=== PATIENT | male | born 1970 | race Caucasian/White ===

== ENCOUNTER 2025-08-31 07:10 | Outpatient (CLI) | payer BC ==
[2025-08-31] MEDS ORDERED: Iopamidol 300 61% 100 ML VIAL FS ONE (11:33)
== END 2025-08-31 07:11 | disposition home or self-care (01) ==
LOC: CSHCT 07:10
PROVIDERS: ATTEND Family Medicine
DX: K76.9 Liver disease, unspecified (principal); K76.0 Fatty (change of) liver, not elsewhere classified
CPT/HCPCS: 74170; Q9967